=== PATIENT | male | born 1950 | race African-American/Black ===

== ENCOUNTER 2017-04-01 07:01 | Emergency (ER) | payer OTHER, MEDICAID ==
[2017-04-01 07:24] VITALS: BMI 29.1
--- NOTE | 2017-04-01 07:37 | DR.GENAD ---
HPI - Complaint/Symptoms Chief Complaint Doctors Comments: Patient states he has not been able to urinate today. States it started yesterday and he drink a couple of beers and 1 /2 pint whiskey with friends and thought that would help but he was able to go a little amount and stills feels he need to urinate. States he is not hurting anywhere he just is unable to urinate. States he has had prostated cancer but he was treated and Dr. Chavira in [facility] told him last year that his prostate cancer was all gone and he has not gone back to the prostate doctor since then. State he is wondering if it is coming back. He denies fever, chills, nausea, vomiting, hematuria or abdominal pain. He denies chest pain or SOB. He denies any recent trauma. States he is a patient of Dr. Hawk and he took his blood pressure medicines today but he does not know the name of his medicines. Chief Complaint:: trouble urinating Self Treatment fo Chief Complaint: hx of prostate ca with tx x 1 year ago - Nurses notes reviewed Nurses Notes Review: Yes - Source History Provided: Patient - Mode of Arrival Mode of Arrival: EMS - Timing Onset of Chief Complaint: 03/25/17 Came on: Gradually - Duration Duration: Constant How lon Duration: Days - Location Location: bladder unable to urinate - Severity Severity: Moderate, Severe - Modifying Factors Worsens:: trying to urinate Improves:: nothing <JARETT DE LA FUENTE - Last Filed: 04/01/17 07:29> PMH - PMH Past Medical History: Yes Past Medical History: Diabetes, Hypertension Past Surgical History: Yes Surgical History: No History - Family History History of Family Medical Conditions: Yes Family Medical History: Diabetes Mellitus, Hypertension - Social History Does patient currently use any type of tobacco product: Yes Have you used tobacco products in the last 12 months: Yes Type of Tobacco Use: Cigarettes Does any household member use tobacco: No Alcohol Use: Occasionally Do you use any recreational Drugs:: No Lives With: Family Lives Where: Home - infectious screening In the last 2 months have you had wt loss of >10#?: NO Have you had fever, night sweats or hemotysis?: No Have you traveled outside the country in the last 6 months?: No Isolation: Standard <JARETT DE LA FUENTE - Last Filed: 04/01/17 07:29> ROS - Review of Systems Constitutional: No Symptoms Reported. negative: See HPI, Chills, Diaphoresis, Fever, Malaise, Weakness, Irritable, Fatigue, Loss of Appetite, Other Eyes: No Symptoms Reported. negative: See HPI, Eye Pain, Blurred Vision, Tearing, Discharge, Photophobia, Diplopia, Other ENTM: No Symptoms Reported, Nose Congestion. negative: See HPI, Ear Pain, Ear Discharge, Pulling on Ears, Hearing Loss, Nose Pain, Nose Discharge, Epistaxis, Mouth Pain, Mouth Swelling, Loose Teeth, Drooling, Throat Pain, Throat Swelling , Ear Foreign Body Respiratoy: No Symptoms Reported. negative: See HPI, Productive Cough, Non- Productive Cough, Moist Cough, Dry Cough, Hacking Cough, Barking Cough, Brassy Cough, Orthopnea, Short of Breath, Stridor, Wheezing, Hemoptysis, Other Cardiovascular: No Symptoms Reported. negative: See HPI, Chest Pain, Edema, Palpitations, Syncope, Cyanosis, Skin Mottling, Other Gastrointestinal/Abdominal: No Symptoms Reported. negative: See HPI, Abdominal Pain, Constipation, Diarrhea, Nausea, Vomiting, Food Intolerance, Other Genitourinary: Dysuria (unable to urinate). negative: No Symptoms Reported, See HPI, Discharge, Frequency, Hematuria, Pain, Bleeding, Other Neurological: No Symptoms Reported Musculoskeletal: No Symptoms Reported Integumentary: No Symptoms Reported. negative: See HPI, Change in Color, Change in Hair/Nails, Dryness, Lesions, Lumps, Rash, Itching, Wound, Bruises, Juandice, Other Hematologic/Lymphatic: No Symptoms Reported. negative: See HPI, Anemia, Blood Clots, Easy Bleeding, Easy Bruising, Swollen Glands, Lymphadenopathy, Other Endocrine: No Symptoms Reported. negative: See HPI, Excessive Sweating, Flushing, Intolerance to Cold, Intolerance to Heat, Increased Hunger, Increased Thirst, Increased Urine, Unexplained Weight Gain, Unexplained Weight Loss, Failure to Thrive, Decreased Appetite, Other Psychiatric: No Symptoms Reported. negative: See HPI, Anxiety, Depression, Hallucinations, Excessive crying, Suicidal, Other <JARETT DE LA FUENTE - Last Filed: 04/01/17 07:29> PE - General Limitations: No Limitations. negative: Language Barrier, Altered Mental Status , Physical Limitation, Other General Appearance: Alert, In No Apparent Distress - Head Head Exam: Normal Inspection, Atraumatic, Normocephalic - Eyes Eye exam: Normal Appearance, PERRL, EOMI. negative: Scleral Icterus, Conjunctival Injection, Nystagmus, Miosis, Mydrasis, Periorbital Swelling, Periorbital Tenderness, Other - ENT ENT Exam: Normal Exam, Normal Oropharynx, Normal External Ear Exam, Mucous Membranes Moist, TM's Normal Bilaterally External Ear Exam: Normal External Inspection TM/Canal Exam: Bilateral Normal Nose Exam: Normal Nose Exam. negative: Sinus Tenderness, Nasal Deviation, Crepitus, Septal Hematoma, Laceration, Abrasion, Other Mouth Exam: Normal Inspection. negative: Drooling, Trismus, Lip Swelling, Tongue Elevation, Tongue Swelling, Laceration, Other Throat Exam: Normal Inspection - Neck Neck Exam: Normal Inspection, Full ROM, Trachea Midline - Chest Chest Inspection: Normal Inspection, Symmetric Chest Wall Rise - Respiratory Respiratory Exam: Normal Lung Sounds Bilat Respiratory Exam: Bilateral Clear to Auscultation - Cardiovascular Cardiovascular Exam: Regular Rate, Normal Rhythm - Abdominal Exam Abdominal Exam: Normal Inspection, Normal Bowel Sounds, Soft Abdominal Tenderness: Suprapubic. negative: RUQ, RLQ, LUQ, LLQ, Epigastrium, Diffuse, Mild, Moderate, Severe, Other - Extremities Extremities Exam: Normal Inspection, Full ROM, Normal Capillary Refill. negative: Tenderness, Edema, Joint Swelling, Calf Tenderness, Other - Back Back Exam: Normal Inspection, Full ROM. negative: Tenderness, (R) CVA Tenderness, (L) CVA Tenderness, Muscle Spasm, Paraspinal Tenderness, Vertebral Tenderness, Rashes, (R) Sciatic Notch Tenderness, (L) Sciatic Notch Tendern, (R ) Straight Leg Raise, (L) Straight Leg Raise, Other - Neurologic Neurological Exam: Alert, Oriented X3, CN II-XII Intact, Reflexes Normal. negative: Normal Gait (gait not tested) - Psychiatric Psychiatric Exam: Normal Affect, Normal Mood - Skin Skin Exam: Warm, Dry, Intact, Normal Color <JARETT DE LA FUENTE - Last Filed: 04/01/17 07:29> - Vital Signs Vitals: Temperature 99.1 F Pulse Rate [Right Brachial] 120 Pulse Rate 103 Respiratory Rate 20 Blood Pressure [Right Arm] 184/90 Blood Pressure [Left Arm] 177/94 Blood Pressure 197/98 O2 Sat by Pulse Oximetry 100 ROR - Labs Reviewed Result Diagrams: 04/01/17 08:30 04/01/17 07:48 - XRAY XRAY Interpreted by: Radiologist (CT Abd/pel: ...The kideyes are normal sites as size with small 2-3 mm stones along the lower poles of both kidneys. No hydronephrosis or renal mass. Mild discoid atelectasis or scarring vs early ifiltrates along the right lung base. Suggest correlating with chest x rays for follow up. Mild prostatic enlargement.) <GABBY ELIZALDE - Last Filed: 04/01/17 09:04> - Labs Reviewed Laboratory: WBC 9.4 X10^3/uL (3.6-10.0) 04/01/17 08:30 RBC 4.62 X10^6/uL (4.7-6.0) L 04/01/17 08:30 Hgb 13.6 g/dL (13.5-18.0) 04/01/17 08:30 Hct 39.8 % (42.0-54.0) L 04/01/17 08:30 MCV 86.2 fL (80.0-100.0) 04/01/17 08:30 MCH 29.4 pg (27.0-34.0) 04/01/17 08:30 MCHC 34.1 g/dL (33.0-35.0) 04/01/17 08:30 RDW 12.7 % (11.6-16.5) 04/01/17 08:30 Plt Count 267 X10^3/uL (150.0-450.0) 04/01/17 08:30 MPV 9.3 fL (7.4-11.0) 04/01/17 08:30 Neut % 77.7 % (42.0-75.0) H 04/01/17 08:30 Lymph % 17.7 % (21.0-51.0) L 04/01/17 08:30 [place] % 3.5 % (0.0-13.0) 04/01/17 08:30 Eos % 0.1 % (0.9-2.9) L 04/01/17 08:30 Baso % 1.0 % (0.2-1.0) 04/01/17 08:30 Neut # 7.3 x10^3/uL (2.2-4.8) H 04/01/17 08:30 Lymph # 1.7 X10^3/uL (1.3-2.9) 04/01/17 08:30 [place] # 0.3 x10^3/uL (0.3-0.8) 04/01/17 08:30 Eos # 0.0 x10^3/uL (0.0-0.2) 04/01/17 08:30 Baso # 0.1 X10^3/uL (0.0-0.1) 04/01/17 08:30 Absolute Nucleated RBC 0.0 /100WBC 04/01/17 08:30 Sodium 137 mmol/L (136-145) 04/01/17 07:48 Corrected Sodium 141 mmol/L (136-145) 04/01/17 07:48 Potassium 4.2 mmol/L (3.5-5.1) 04/01/17 07:48 Chloride 99 mmol/L (98-107) 04/01/17 07:48 Carbon Dioxide 20.8 mmol/L (21-32) L 04/01/17 07:48 BUN 23 mg/dL (7-18) H 04/01/17 07:48 Creatinine 1.36 mg/dL (0.70-1.30) H 04/01/17 07:48 Est GFR (MDRD) Af Amer > 60 (>60) 04/01/17 07:48 Est GFR (MDRD) Non-Af 56 (>60) L 04/01/17 07:48 Glucose 268 mg/dL (65-99) H 04/01/17 07:48 Calcium 9.4 mg/dL (8.5-10.1) 04/01/17 07:48 Corrected Calcium TNP 04/01/17 07:48 Total Bilirubin 0.40 mg/dL (0.2-1.0) 04/01/17 07:48 AST 28 Units/L (15-37) 04/01/17 07:48 ALT 35 Units/L (12-78) 04/01/17 07:48 Alkaline Phosphatase 95 Units/L (46-116) 04/01/17 07:48 Total Protein 8.6 g/dL (6.4-8.2) H 04/01/17 07:48 Albumin 4.3 g/dL (3.4-5.0) 04/01/17 07:48 Globulin 4.3 g/dL (2.5-4.5) 04/01/17 07:48 Albumin/Globulin Ratio 1.0 Ratio (1.1-2.1) L 04/01/17 07:48 Specimen Type Catherized urine 04/01/17 07:14 Urine Color Yellow (YELLOW) 04/01/17 07:14 Urine Appearance Clear (CLEAR) 04/01/17 07:14 Urine pH 5.0 (5.0 - 8.0) 04/01/17 07:14 Ur Specific [place] 1.020 (1.000-1.030) 04/01/17 07:14 Urine Protein 2+ (NEGATIVE) 04/01/17 07:14 Urine Glucose (UA) 4+ (NEGATIVE) 04/01/17 07:14 Urine Ketones Negative (NEGATIVE) 04/01/17 07:14 Urine Occult Blood 4+ (NEGATIVE) 04/01/17 07:14 Urine Nitrite Negative (NEGATIVE) 04/01/17 07:14 Urine Bilirubin Negative (NEGATIVE) 04/01/17 07:14 Urine Urobilinogen Normal (NORMAL) 04/01/17 07:14 Ur Leukocyte Esterase Negative (NEGATIVE) 04/01/17 07:14 Urine RBC 1- 2 /HPF (NEGATIVE) 04/01/17 07:14 Urine WBC Rare /HPF (NEGATIVE) 04/01/17 07:14 Ur Squamous Epith Cells Rare /HPF (NEGATIVE) 04/01/17 07:14 Urine Bacteria Negative /HPF (NEGATIVE) 04/01/17 07:14 Ur Culture Indicated? No/not indicated 04/01/17 07:14 <JARETT DE LA FUENTE - Last Filed: 04/01/17 07:29> <GABBY ELIZALDE - Last Filed: 04/01/17 09:04> - Diagnosis Discharge Problem: Acute urinary retention, mild prostate enlargement - Discharge Plan Condition: Stable - Follow ups/Referrals Follow ups/Referrals: NFD,None [Primary Care Provider] - 3 days - Instructions
[2017-04-01 07:46] VITALS: BP 184/90
[2017-04-01 08:09] LABS: BILIRUBIN,URINE NEGATIVE (NEGATIVE); BLOOD/HEMOGLOBIN,URINE 4+ (NEGATIVE); GLUCOSE, URINE 4+ (NEGATIVE); KETONES,URINE NEGATIVE (NEGATIVE); LEUKOCYTE ESTERASE ,URINE NEGATIVE (NEGATIVE); NITRITES,URINE NEGATIVE (NEGATIVE); PROTEIN,URINE 2+ (NEGATIVE); UROBILINOGEN,URINE NORMAL (NORMAL)
[2017-04-01 08:23] LABS: APPEARANCE,URINE CLEAR (CLEAR); COLOR,URINE YELLOW (YELLOW)
[2017-04-01 08:25] LABS: BACTERIA,URINE NEGATIVE /HPF (NEGATIVE); SQUAMOUS EPITHELIAL CELL,UR RARE /HPF (NEGATIVE)
[2017-04-01 08:28] LABS: ALANINE AMINOTRANSFERASE 35 Units/L (12-78); ALBUMIN 4.3 g/dL (3.4-5.0); ALKALINE PHOSPHATASE 95 Units/L (46-116); ASPARTATE AMINO TRANSFERASE 28 Units/L (15-37); BLOOD UREA NITROGEN 23 mg/dL (7-18); CALCIUM 9.4 mg/dL (8.5-10.1); CARBON DIOXIDE 20.8 mmol/L (21-32); CHLORIDE 99 mmol/L (98-107); COR NA(FOR HYPERGLY) 141 mmol/L (136-145); CREATININE 1.36 mg/dL (0.70-1.30); SODIUM 137 mmol/L (136-145); TOTAL PROTEIN 8.6 g/dL (6.4-8.2); eGFR BLACK RACES > 60 (>60); eGFR NON BLACK RACES 56 (>60)
[2017-04-01 08:39] LABS: BASOPHILS # (AUTO) 0.1 X10^3/uL (0.0-0.1); EOSINOPHILS % (AUTO) 0.1 % (0.9-2.9); HEMATOCRIT 39.8 % (42.0-54.0); HEMOGLOBIN 13.6 g/dL (13.5-18.0); LYMPHOCYTES # (AUTO) 1.7 X10^3/uL (1.3-2.9); LYMPHOCYTES % (AUTO) 17.7 % (21.0-51.0); MEAN CORPUSCULAR HEMOGLOBIN 29.4 pg (27.0-34.0); MEAN CORPUSCULAR HGB CONC 34.1 g/dL (33.0-35.0); MEAN CORPUSCULAR VOLUME 86.2 fL (80.0-100.0); MEAN PLATELET VOLUME 9.3 fL (7.4-11.0); MONOCYTES # (AUTO) 0.3 x10^3/uL (0.3-0.8); MONOCYTES % (AUTO) 3.5 % (0.0-13.0); NEUTROPHILS # (AUTO) 7.3 x10^3/uL (2.2-4.8); NEUTROPHILS % (AUTO) 77.7 % (42.0-75.0); PLATELET COUNT 267 X10^3/uL (150.0-450.0); RED BLOOD COUNT 4.62 X10^6/uL (4.7-6.0); RED CELL DISTRIBUTION WIDTH 12.7 % (11.6-16.5); WHITE BLOOD COUNT 9.4 X10^3/uL (3.6-10.0)
--- NOTE | 2017-04-01 08:44 | CT ---
Indication: Urinary retention and pain Exam: CT abdomen and pelvis without contrast. Technique: Axial spiral images were obtained from lung bases through the pubic symphysis without cont rast with coronal and sagittal reconstructions. Automated does control was used. Findings: There are mild linear densities along the right lung base posterior laterally. The liver an d spleen are normal size and density. The gallbladder, pancreas , and adrenals are normal. The kidney s are normal sites as size with small 2-3 mm stones along the lower poles of both kidneys. No hydrone phrosis or renal mass is seen. There is a prominent extrarenal pelvis on the right with slight promin ence of the proximal right ureter with the distal ureter . normal caliber distally with no obvious ur eteral stone . There is a Olvera catheter in the bladder . The prostate gland is slightly enlarged. Th ere is no pelvic mass or adenopathy. The appendix is unremarkable. The bones are intact. Impression: Small renal stones bilaterally with a prominent extrarenal pelvis on the right and slight prominence of the proximal right ureter with no obvious ureteral stone identified on the right . Recommend clini samantha follow-up. Olvera catheter in the bladder and mild prostatic enlargement , recommend clinical follow-up Mild discoid atelectasis or scarring vs early infiltrates along the right lung base. Suggest correlat ing with chest x-rays for follow-up Reported By:
== END 2017-04-01 10:29 | disposition home or self-care (01) ==
LOC: ER 07:01
PROC: 0T9B70Z Drainage of Bladder with Drainage Device, Via Natural or Artificial Opening (ICD-10-PCS; principal; 2017-04-01)
DX: N40.0 Benign prostatic hyperplasia without lower urinary tract symptoms (principal); N20.0 Calculus of kidney; R33.9 Retention of urine, unspecified; J98.11 Atelectasis; R33.8 Other retention of urine
CPT/HCPCS: 36415; 51702; 74176; 80053; 81001; 85025; 99283

== ENCOUNTER 2017-06-22 06:46 | Emergency (ER) | payer OTHER, MEDICAID ==
[2017-06-22 06:51] VITALS: BP 179/100; BMI 27.9
--- NOTE | 2017-06-22 07:08 | DR.GENAD ---
HPI - PCP Primary Care Physician: [facility] - Complaint/Symptoms Chief Complaint:: PT C/O FLU LIKE SYMPTOMS. PT STATES HE HAS BEEN HAVING BODY ACHES, FEVER, CHILLS, COUGHING, N/V AND DIZZINESS. PT STATES ALL HIS SYMPTOMS STARTED YESTERDAY AFTERNOON. - Nurses notes reviewed Nurses Notes Review: Yes - Source History Provided: Patient - Mode of Arrival Mode of Arrival: Ambulatory - Timing Onset of Chief Complaint: 06/21/17 Came on: Suddenly - Duration Duration: Constant Duration: Days - Severity Severity: Moderate PMH - PMH Past Medical History: Yes Past Medical History: Diabetes, Hypertension Past Medical History Comment: PROSTATE CA(CURRENTLY ON TREATMENTS) Past Surgical History: Yes Surgical History: No History - Family History History of Family Medical Conditions: Yes Family Medical History: Diabetes Mellitus, Hypertension - Social History Does any household member use tobacco: No Alcohol Use: None Do you use any recreational Drugs:: No Lives With: Alone Lives Where: Home - infectious screening In the last 2 months have you had wt loss of >10#?: NO Have you had fever, night sweats or hemotysis?: No Have you traveled outside the country in the last 6 months?: No Isolation: Standard ROS - Review of Systems Constitutional: No Symptoms Reported Eyes: No Symptoms Reported ENTM: No Symptoms Reported Respiratoy: No Symptoms Reported Cardiovascular: No Symptoms Reported Gastrointestinal/Abdominal: No Symptoms Reported Genitourinary: No Symptoms Reported Neurological: No Symptoms Reported Musculoskeletal: No Symptoms Reported Integumentary: No Symptoms Reported Hematologic/Lymphatic: No Symptoms Reported Endocrine: No Symptoms Reported All Other Systems: Reviewed and Negative PE - Vital Signs Vitals: Temperature 98.7 F Pulse Rate 102 Respiratory Rate 20 Blood Pressure [Right Arm] 184/90 Blood Pressure [Left Arm] 177/94 Blood Pressure 179/100 O2 Sat by Pulse Oximetry 98 ROR - Labs Reviewed Laboratory: Influenza Type A (PCR) Negative (NEGATIVE) 06/22/17 07:14 Influenza Type B (PCR) Positive (NEGATIVE) A 06/22/17 07:14 - Discharge Plan Condition: Stable Prescriptions: Acetaminophen with Codeine [Tylenol/Codeine #3 300-30 mg] 1 tab PO Q6H PRN #15 tab PRN Reason: Pain Amoxicillin [Amoxil 875 mg] 875 mg PO Q12H #20 tab Oseltamivir Phosphate [Tamiflu] 75 mg PO BID #10 cap - Follow ups/Referrals Follow ups/Referrals: Pacheco CARTER [Primary Care Provider] - 3 days - Instructions Instructions: Influenza, Adult, [id number], Sinus Headache, Sinusitis, Adult , [id number]
[2017-06-22] MEDS ORDERED: TORADOL 60 MG VIAL IM ONE (07:33)
[2017-06-22] MEDS ORDERED: TORADOL 60 MG VIAL ONE (08:01)
== END 2017-06-22 08:48 | disposition home or self-care (01) ==
LOC: ER 06:46
DX: J10.1 Influenza due to other identified influenza virus with other respiratory manifestations (principal); J32.9 Chronic sinusitis, unspecified; R51 Headache
CPT/HCPCS: 87502; 96372; 99282; J1885

== ENCOUNTER 2017-06-25 13:12 | Emergency (ER) | payer OTHER, MEDICAID ==
[2017-06-25 13:18] VITALS: BP 138/81; BMI 28.8
--- NOTE | 2017-06-25 14:10 | DR.ABDMALE ---
HPI - Time seen Time seen: 13:50 - PCP Primary Care Physician: [facility] [place] - HPI comment HPI Comment: HISTORY BELOW. - Complaint Chief Complaint Doctors Comments: ABDOMINAL PAIN WITH NAUSEA AND GENERALIZE WEAKNESS TIMES 3 DAYS. COMPLETED LUX FLU BUT CONTINUE WITH GENERALIZE WEAKNESS AND FATIGUE WITH ANOREXIA. THESE SYMTOMS WERE WORSE TODAY. Chief Complaint:: PT C/O BEING SEEN SUNDAY AND DX WITH THE FLU AND HE TOOK HIS MEDS AND HE STILL IS NOT BETTER AND I BEEN WATCHING THE NEWS AND THEM PEOPLE DYING FROM THE FLU... PT C/O ABD PAIN RAJAT LOWER QUAD AND THAT HE HAS NOT BEEN ABLE TO EAT SINCE SUNDAY. - Reviewed Nurses Notes Review: Yes - Mode of arrival Mode of Arrival: Ambulatory - Timing Onset of Chief Complaint: 06/22/17 Came on: Suddenly - Duration Duration: Since Onset - Severity Severity: Moderate - Quality Quality: Cramping - Context Onset: Gradually History of: None - Modifying factors Worsening Factors: Nothing Improving Factors: Nothing - Associated signs and symptoms Associated Signs and Symptoms: Nausea, Constipation PMH - PMH Past Medical History: Yes Past Medical History: Diabetes, Hypertension Past Surgical History: No Surgical History: No History - Family History History of Family Medical Conditions: Yes Family Medical History: Diabetes Mellitus Family Medical History Comment: HEART? - Social History Does patient currently use any type of tobacco product: No Have you used tobacco products in the last 12 months: No Type of Tobacco Use: None Does any household member use tobacco: No Alcohol Use: None Do you use any recreational Drugs:: No Lives With: Alone Lives Where: Home - infectious screening In the last 2 months have you had wt loss of >10#?: NO Have you had fever, night sweats or hemotysis?: No Have you traveled outside the country in the last 6 months?: No Isolation: [place]/Negative Pressure ROS - Review of Systems Constitutional: Weakness, Fatigue, Loss of Appetite. negative: Chills, Fever Eyes: negative: Eye Pain, Discharge ENTM: Nose Congestion. negative: Ear Pain, Nose Discharge, Throat Pain Respiratoy: Non-Productive Cough. negative: Short of Breath, Wheezing, Hemoptysis Cardiovascular: negative: Chest Pain Gastrointestinal/Abdominal: Abdominal Pain, Nausea Genitourinary: No Symptoms Reported. negative: Dysuria, Hematuria Neurological: Headache, Weakness Musculoskeletal: Muscle Pain Integumentary: Change in Color Hematologic/Lymphatic: No Symptoms Reported Endocrine: No Symptoms Reported All Other Systems: Reviewed and Negative PE - Vital Signs Vital Signs: Temp Pulse Resp BP BP BP Pulse Ox 06/25/17 13:13 97.4 F L 102 H 20 138/81 98 06/22/17 06:48 179/100 04/01/17 07:45 184/90 09/24/13 12:00 177/94 - General Limitations: No Limitations General Appearance: Alert - Head Head Exam: Normal Inspection - Eyes Eye exam: Normal Appearance - ENT ENT Exam: Normal Oropharynx - Neck Neck Exam: Trachea Midline - Chest Chest Inspection: Symmetric Chest Wall Rise - Respiratory Respiratory Exam: Normal Lung Sounds Bilat Respiratory Exam: Bilateral Rhonchi, Lower Rhonchi - Cardiovascular Cardiovascular Exam: Regular Rate, Normal Rhythm, Normal Heart Sounds - Abdominal Exam Abdominal Exam: Normal Bowel Sounds, Soft, Tenderness Abdominal Tenderness: Diffuse, Moderate - Rectal Rectal Exam: Deferred - Back Back Exam: Normal Inspection - Extremeties Extremities Exam: Normal Inspection - Exam: Male: Deferred - Neurologic Neurological Exam: Alert, Oriented X3 - Psychiatric Psychiatric Exam: Normal Affect, Normal Mood - Skin Skin Exam: Erythema MDM - Additional Information Obtained From Additional information provided by: Family - Differential Diagnosis Differential Diagnosis: Bowel Obstruction, Diverticular disease, Gastritus/PUD, Pancreatitis, Urinary tract infection, Urolithiasis Other differential diagnosis: influenza, pneumonia, bronchitis Course - Treatment Treatment: SEE ORDERS. - Education/Counseling Education/Counseling: Patient, Education Educated On: Diagnosis, Needs for Follow Up ROR - Labs Reviewed Laboratory Results Reviewed?: Yes Result Diagrams: 06/25/17 14:25 06/25/17 14:25 Laboratory: WBC 3.4 X10^3/uL (3.6-10.0) L 06/25/17 14:25 RBC 4.93 X10^6/uL (4.7-6.0) 06/25/17 14:25 Hgb 14.3 g/dL (13.5-18.0) 06/25/17 14:25 Hct 41.8 % (42.0-54.0) L 06/25/17 14:25 MCV 84.8 fL (80.0-100.0) 06/25/17 14:25 MCH 29.0 pg (27.0-34.0) 06/25/17 14:25 MCHC 34.2 g/dL (33.0-35.0) 06/25/17 14:25 RDW 12.4 % (11.6-16.5) 06/25/17 14:25 Plt Count 178 X10^3/uL (150.0-450.0) 06/25/17 14:25 MPV 9.9 fL (7.4-11.0) 06/25/17 14:25 Neut % 42.7 % (42.0-75.0) 06/25/17 14:25 Lymph % 41.4 % (21.0-51.0) 06/25/17 14:25 [place] % 13.8 % (0.0-13.0) H 06/25/17 14:25 Eos % 1.2 % (0.9-2.9) 06/25/17 14:25 Baso % 0.9 % (0.2-1.0) 06/25/17 14:25 Neut # 1.4 x10^3/uL (2.2-4.8) L 06/25/17 14:25 Lymph # 1.4 X10^3/uL (1.3-2.9) 06/25/17 14:25 [place] # 0.5 x10^3/uL (0.3-0.8) 06/25/17 14:25 Eos # 0.0 x10^3/uL (0.0-0.2) 06/25/17 14:25 Baso # 0.0 X10^3/uL (0.0-0.1) 06/25/17 14:25 Absolute Nucleated RBC 0.1 /100WBC 06/25/17 14:25 Sodium 129 mmol/L (136-145) L 06/25/17 14:25 Corrected Sodium 134 mmol/L (136-145) L 06/25/17 14:25 Potassium 4.4 mmol/L (3.5-5.1) 06/25/17 14:25 Chloride 98 mmol/L (98-107) 06/25/17 14:25 Carbon Dioxide 26.9 mmol/L (21-32) 06/25/17 14:25 BUN 31 mg/dL (7-18) H 06/25/17 14:25 Creatinine 1.57 mg/dL (0.70-1.30) H 06/25/17 14:25 Est GFR (MDRD) Af Amer 57 (>60) L 06/25/17 14:25 Est GFR (MDRD) Non-Af 47 (>60) L 06/25/17 14:25 Glucose 316 mg/dL (65-99) H 06/25/17 14:25 Calcium 9.2 mg/dL (8.5-10.1) 06/25/17 14:25 Corrected Calcium TNP 06/25/17 14:25 Total Bilirubin 0.10 mg/dL (0.2-1.0) L 06/25/17 14:25 AST 29 Units/L (15-37) 06/25/17 14:25 ALT 24 Units/L (12-78) 06/25/17 14:25 Alkaline Phosphatase 61 Units/L (46-116) 06/25/17 14:25 Total Protein 8.1 g/dL (6.4-8.2) 06/25/17 14:25 Albumin 3.8 g/dL (3.4-5.0) 06/25/17 14:25 Globulin 4.3 g/dL (2.5-4.5) 06/25/17 14:25 Albumin/Globulin Ratio 0.9 Ratio (1.1-2.1) L 06/25/17 14:25 Amylase 95 Units/L (25-115) 06/25/17 14:25 Lipase 143 Units/L (73-393) 06/25/17 14:25 Specimen Type Clean catch urine 06/25/17 14:25 Urine Color Yellow (YELLOW) 06/25/17 14:25 Urine Appearance Hazy (CLEAR) 06/25/17 14:25 Urine pH 5.0 (5.0 - 8.0) 06/25/17 14:25 Ur Specific [place] 1.020 (1.000-1.030) 06/25/17 14:25 Urine Protein 3+ (NEGATIVE) 06/25/17 14:25 Urine Glucose (UA) 4+ (NEGATIVE) 06/25/17 14:25 Urine Ketones 1+ (NEGATIVE) 06/25/17 14:25 Urine Occult Blood Negative (NEGATIVE) 06/25/17 14:25 Urine Nitrite Negative (NEGATIVE) 06/25/17 14:25 Urine Bilirubin Negative (NEGATIVE) 06/25/17 14:25 Urine Urobilinogen Normal (NORMAL) 06/25/17 14:25 Ur Leukocyte Esterase 1+ (NEGATIVE) 06/25/17 14:25 Urine RBC 0-2 /HPF (NEGATIVE) 06/25/17 14:25 Urine WBC 0-2 /HPF (NEGATIVE) 06/25/17 14:25 Ur Squamous Epith Cells Negative /HPF (NEGATIVE) 06/25/17 14:25 Urine Bacteria Trace /HPF (NEGATIVE) 06/25/17 14:25 Hyaline Casts Few /LPF (NEGATIVE) 06/25/17 14:25 Ur Culture Indicated? No/not indicated 06/25/17 14:25 - XRAY XRAY Interpreted by: Radiologist XRAY Findings: report discuss with patient. - Diagnosis Discharge Problem: Pneumonia Qualifiers: Pneumonia type: due to unspecified organism Laterality: bilateral Lung location : lower lobe of lung Qualified Code(s): J18.9 - Pneumonia, unspecified organism Constipation Qualifiers: Constipation type: unspecified constipation type Qualified Code(s): K59.00 - Constipation, unspecified - Discharge Plan Disposition: HOME, SELF-CARE Condition: Stable Prescriptions: Bisacodyl Rectal [Dulcolax Suppository 10 mg] 10 mg RECTAL HS #12 sup Cefdinir [Omnicef Cap 300 mg] 300 mg PO BID #20 cap Ranitidine HCl [ZANTAC TAB 150 MG *] 150 mg PO BID #60 tab - Follow ups/Referrals Follow ups/Referrals: Pacheco CARTER [Primary Care Provider] - 3 days - Instructions Instructions: Constipation, Adult, [id number], Pneumonitis Additional Instructions: RETURN TO ED IF WORSE.
[2017-06-25 14:37] LABS: BASOPHILS % (AUTO) 0.9 % (0.2-1.0); EOSINOPHILS % (AUTO) 1.2 % (0.9-2.9); HEMATOCRIT 41.8 % (42.0-54.0); HEMOGLOBIN 14.3 g/dL (13.5-18.0); LYMPHOCYTES # (AUTO) 1.4 X10^3/uL (1.3-2.9); LYMPHOCYTES % (AUTO) 41.4 % (21.0-51.0); MEAN CORPUSCULAR HGB CONC 34.2 g/dL (33.0-35.0); MEAN CORPUSCULAR VOLUME 84.8 fL (80.0-100.0); MEAN PLATELET VOLUME 9.9 fL (7.4-11.0); MONOCYTES # (AUTO) 0.5 x10^3/uL (0.3-0.8); MONOCYTES % (AUTO) 13.8 % (0.0-13.0); NEUTROPHILS # (AUTO) 1.4 x10^3/uL (2.2-4.8); NEUTROPHILS % (AUTO) 42.7 % (42.0-75.0); PLATELET COUNT 178 X10^3/uL (150.0-450.0); RED BLOOD COUNT 4.93 X10^6/uL (4.7-6.0); RED CELL DISTRIBUTION WIDTH 12.4 % (11.6-16.5); WHITE BLOOD COUNT 3.4 X10^3/uL (3.6-10.0)
[2017-06-25 14:43] LABS: BILIRUBIN,URINE NEGATIVE (NEGATIVE); BLOOD/HEMOGLOBIN,URINE NEGATIVE (NEGATIVE); COLOR,URINE YELLOW (YELLOW); GLUCOSE, URINE 4+ (NEGATIVE); KETONES,URINE 1+ (NEGATIVE); LEUKOCYTE ESTERASE ,URINE 1+ (NEGATIVE); NITRITES,URINE NEGATIVE (NEGATIVE); PROTEIN,URINE 3+ (NEGATIVE); UROBILINOGEN,URINE NORMAL (NORMAL)
[2017-06-25 14:44] LABS: APPEARANCE,URINE HAZY (CLEAR); BACTERIA,URINE TRACE /HPF (NEGATIVE); HYALINE CASTS, URINE FEW /LPF (NEGATIVE); RBC,URINE 0-2 /HPF (NEGATIVE); SQUAMOUS EPITHELIAL CELL,UR NEGATIVE /HPF (NEGATIVE)
--- NOTE | 2017-06-25 14:54 | CT ---
CT ABDOMEN AND PELVIS WITHOUT CONTRAST CLINICAL HISTORY: 67-year-old male with lower abdominal pain for 5 days COMPARISON: CT abdomen and pelvis 04/01/2017. TECHNIQUE: Multiple contiguous computed tomographic axial images of the abdomen and pelvis were obtai mayte without the use of oral or intravenous contrast. Images were reformatted in the coronal and sagit kathleen planes. FINDINGS: There are a few foci of atelectasis/consolidation within the right lung base with left basilar subseg mental dependent atelectasis. No nodule, mass, effusion or pneumothorax. The imaged inferior mediast inum and heart are normal in appearance without evidence of pericardial effusion. Liver, gallbladder, spleen and pancreas are unremarkable. 1.3 cm splenule posterior inferior to the s pleen. Adrenal glands are unremarkable bilaterally. Multiple bilateral punctate nonobstructing renal stones. No perinephric fluid collection. There is no evidence of hydroureteronephrosis and the ureters run i n an unobstructed course to a partially distended urinary bladder. The prostate, seminal vesicles, and external genitalia are within normal limits. The appendix is normal in appearance. The bowel is without obstruction or inflammation and there is no free fluid or free air within the peritoneal cavity. Significant stool burden within the cecum, a scending colon, descending colon, sigmoid and rectum. There are no pathologically enlarged lymph node s in the abdomen or pelvis. Severe calcific atherosclerotic plaque of the aorta and its branches. Soft tissues are normal. The osseous structures are intact without fracture or malalignment. Multilevel degenerative change of the imaged spine most pronounced at L4-L5. IMPRESSION: 1. Multiple punctate bilateral nonobstructing renal stones. 2. Normal appendix. 3. Stool burden consistent with constipation. Correlate clinically. 4. There are a few foci of right basilar atelectasis versus consolidation, correlate clinically for u nderlying infectious process. 5. No acute intra-abdominal or intrapelvic process otherwise. Reported By:
[2017-06-25 15:02] LABS: ALANINE AMINOTRANSFERASE 24 Units/L (12-78); ALBUMIN 3.8 g/dL (3.4-5.0); ALKALINE PHOSPHATASE 61 Units/L (46-116); AMYLASE 95 Units/L (25-115); ASPARTATE AMINO TRANSFERASE 29 Units/L (15-37); BLOOD UREA NITROGEN 31 mg/dL (7-18); CALCIUM 9.2 mg/dL (8.5-10.1); CARBON DIOXIDE 26.9 mmol/L (21-32); CHLORIDE 98 mmol/L (98-107); COR NA(FOR HYPERGLY) 134 mmol/L (136-145); CREATININE 1.57 mg/dL (0.70-1.30); LIPASE 143 Units/L (73-393); SODIUM 129 mmol/L (136-145); TOTAL PROTEIN 8.1 g/dL (6.4-8.2); eGFR BLACK RACES 57 (>60); eGFR NON BLACK RACES 47 (>60)
[2017-06-25] MEDS ORDERED: ROCEPHIN VIAL 1 GM IM ONE (15:40)
[2017-06-25] MEDS ORDERED: XYLOCAINE 1 % (PLAIN) ONE (15:48)
[2017-06-25] MEDS ORDERED: ROCEPHIN VIAL 1 GM ONE (15:49)
== END 2017-06-25 16:07 | disposition home or self-care (01) ==
LOC: ER 13:29
DX: J18.9 Pneumonia, unspecified organism (principal); K59.09 Other constipation; R10.84 Generalized abdominal pain
CPT/HCPCS: 36415; 74176; 80053; 81001; 82150; 83690; 85025; 96372; 99283; 99284; J0696; J2001